=== PATIENT | female | born 1970 | race African-American/Black ===

== ENCOUNTER 2024-08-29 00:05 | Emergency (ER) | payer OTHER ==
[~2024-08-29] VITALS: Ht 170.2 cm; Wt 69.0 kg
[2024-08-29 00:17] VITALS: BP 147/91; PULSE 96; RESP 16; TEMP 36.6; O2SAT 99
[2024-08-29] MEDS: ACETAMINOPHEN 325MG TABLET PO ONE (00:27)
== END 2024-08-29 00:27 | disposition home or self-care (01) ==
LOC: ER 00:05
DX: S00.31XA Abrasion of nose, initial encounter (principal); Z02.89 Encounter for other administrative examinations; Z88.0 Allergy status to penicillin; V89.2XXA Person injured in unspecified motor-vehicle accident, traffic, initial encounter; Y93.89 Activity, other specified; Y92.89 Other specified places as the place of occurrence of the external cause; Y99.8 Other external cause status
CPT/HCPCS: 99283